=== PATIENT | male | born 1975 | race Two or more races ===

== ENCOUNTER 2020-09-01 06:06 | Day surgery (SDC) | payer OTHER | END 2020-09-01 09:45 | disposition home or self-care (01) | LOC: AMB-ENDOS 06:06 | PROVIDERS: ATTEND Colon & Rectal Surgery | DX: K62.89 Other specified diseases of anus and rectum (principal); K64.0 First degree hemorrhoids; Z12.11 Encounter for screening for malignant neoplasm of colon; Z20.828 Contact with and (suspected) exposure to other viral communicable diseases ==